=== PATIENT | male | born 1945 | race Caucasian/White ===

== ENCOUNTER 2018-12-02 00:54 | Emergency (ER) | payer MEDICARE ==
[2018-12-02 01:48] LABS: ALT (SGPT) 18 U/L (8-55); AST (SGOT) 22 U/L (5-34); Albumin 3.7 g/dL (3.4-4.8); Alkaline Phosphatase 44 U/L (40-150); Anion Gap 13 mmol/L (10-20); BUN (Urea Nitrogen) 13 mg/dL (8.4-25.7); Bilirubin, Total 1.1 mg/dL (0.2-1.2); Calc. Creatinine Clearance 0 mL/min (70-130); Carbon Dioxide 29 mmol/L (23-31); Chloride 99 mmol/L (98-107); Estimated GFR-MDRD 87; Globulin 2.9 g/dL (2.4-3.5); Glucose 133 mg/dL (83-110); Lipase 36 U/L (8-78); Potassium 3.9 mmol/L (3.5-5.1); Protein, Total 6.6 g/dL (5.8-8.1); Sodium 137 mmol/L (136-145)
[2018-12-02 02:13] LABS: Hemoglobin 16.2 g/dL (14.0-18.0); Mean Corpuscular HGB CONC 33.1 g/dL (32.0-36.0); Mean Corpuscular Hemoglobin 32.3 pg (27.0-31.0); Mean Corpuscular Volume 97.5 fL (78.0-98.0); Mean Platelet Volume 6.5 fL (7.4-10.4); Platelet Count 227 thou/uL (130-400); RBC Distribution Width 12.7 % (11.5-14.5); Red Blood Cell (RBC) Count 5.02 mill/uL (4.70-6.10); White Blood Cell (WBC) Count 7.2 thou/uL (4.8-10.8)
[2018-12-02 02:16] LABS: Band 1 % (5-11); Eosinophils 5 % (0-10); Lymphocytes 49 % (21-51); MDiff Complete? YES; Monocytes 9 % (0-10); Neutrophil 35 % (42-75)
[2018-12-02] MEDS ORDERED: Lidocaine Viscous Sol 2% 15 ml UD Cup ONE (02:43)
[2018-12-02] MEDS ORDERED: Mag-Al 1200 mg/1200 mg/30 ML UDCUP ONE (02:43)
--- NOTE | 2018-12-02 08:12 | CT ---
CT ABDOMEN AND PELVIS WITH CONTRAST: INDICATIONS: Diffuse abdominal pain. COMPARISON: No prior comparison. FINDINGS: There is scattered subpleural nodularity of the bilateral lung bases. Atelectasis and/or scarring is seen bilaterally. There is a small hiatal hernia. Diffuse vascular disease is present. There is m oderate distention of the gallbladder with cholelithiasis, localizing to the gallbladder neck. No fo lidya hepatic or splenic lesion. No pancreatic inflammation. No hydronephrosis of either kidney. Sma ll parenchymal hypodensity of the left kidney is too small to definitively characterize. No evidence of adrenal mass. There is no free air. The bowel is incompletely evaluated without the presence of enteric contrast. There is scattered colonic diverticulosis. There is subtle increased density of the posterior bladder bilaterally, indicative of excreted contrast. No evidence of ascites. There a re diffuse osseous degenerative changes. IMPRESSION: 1. Moderate distention of the gallbladder with cholelithiasis, localizing to the gallbladder neck. Recommend gallbladder ultrasound for further evaluation. 2. Small left renal hypodensity, too small to further characterize. 3. Diffuse atherosclerosis. 4. Colonic diverticulosis. POS: NWK
--- NOTE | 2018-12-02 08:42 | RAD ---
EXAM: Portable chest PROVIDED CLINICAL HISTORY: Abdominal pain COMPARISON: 04/16/2010 FINDINGS: Cardiac and mediastinal silhouette is within normal limits. No focal consolidation, pleural fluid or pneumothorax evident. IMPRESSION: No evidence for an acute cardiopulmonary process.
--- NOTE | 2018-12-02 13:09 | ULT ---
GALLBLADDER ULTRASOUND: INDICATIONS: Epigastric pain. COMPARISON: Reference is made to preceding CT exam, demonstrating cholelithiasis. FINDINGS: There is moderate distention of the gallbladder. The gallbladder wall is thickened. Shadowing west lithiasis is seen at the gallbladder neck with probable surrounding gallbladder sludge. The imaged c ommon duct measures 4 mm. No focal hepatic lesion or evidence of ascites. IMPRESSION: Distended gallbladder with gallbladder wall thickening and cholelithiasis. Recommend surgical consultation for further assessment. POS: KIERSTEN
[2018-12-02] MEDS ORDERED: ISOVUE-370 76%-LOCM 1 ML ONE (13:54)
== END 2018-12-02 07:37 | disposition home or self-care (01) ==
LOC: ERS 00:54
DX: K80.20 Calculus of gallbladder without cholecystitis without obstruction (principal); I10 Essential (primary) hypertension; J45.909 Unspecified asthma, uncomplicated; Z79.899 Other long term (current) drug therapy
CPT/HCPCS: 36415; 71045; 74177; 76705; 80053; 83690; 84484; 85025; 93005; Q9966

== ENCOUNTER 2018-12-04 10:06 | Outpatient (CLI) | payer MEDICARE ==
[2018-12-04 12:17] LABS: ALT (SGPT) 10 U/L (8-55); AST (SGOT) 16 U/L (5-34); Albumin 3.8 g/dL (3.4-4.8); Alkaline Phosphatase 47 U/L (40-150); Bilirubin, Direct 0.9 mg/dL (0.1-0.3); Protein, Total 6.9 g/dL (5.8-8.1)
== END 2018-12-04 10:07 | disposition home or self-care (01) ==
LOC: LABBT 10:06
PROVIDERS: ATTEND Surgery
DX: Z01.812 Encounter for preprocedural laboratory examination (principal); K81.9 Cholecystitis, unspecified
CPT/HCPCS: 80076

== ENCOUNTER 2018-12-07 07:47 | Day surgery (SDC) | payer MEDICARE ==
[2018-12-04 10:51] VITALS: BMI 30.6
[2018-12-07] MEDS ORDERED: Sodium Chloride 0.9% 100 ML ONE (08:52)
[2018-12-07] MEDS ORDERED: cefOXitin 2 GM VIAL ONE (08:52)
[2018-12-07] MEDS ORDERED: Bupivacaine/Epinephrine 0.25% 30 ML VIAL ONE (09:30)
[2018-12-07] MEDS ORDERED: Fentanyl 100 MCG/2 ML VIAL ONE ×3 (09:51→12:08)
[2018-12-07] MEDS ORDERED: Midazolam HCl 2 mg/2 ml Vial ONE (09:51)
[2018-12-07] MEDS ORDERED: Iothalamate Meglumine 60% 50 ML VIAL FS ONE (09:53)
--- NOTE | 2018-12-07 11:25 | RAD ---
INTRAOPERATIVE CHOLANGIOGRAM: Date: 12/07/18 HISTORY: Cholecystectomy. FINDINGS: Three images from an intraoperative cholangiogram provided. First image demonstrates contrast media w ithin the duodenum and proximal CBD. The two later images demonstrate contrast media within the entir ety of the CBD. No filling defects seen. IMPRESSION: No filling defects seen within the common bile duct. POS: ANGELA
[2018-12-07] MEDS ORDERED: Ketorolac Tromethamine 30 MG/ML VIAL ONE (11:57)
--- NOTE | 2018-12-07 18:51 | OP ---
DATE OF PROCEDURE: 12/07/2018 PREOPERATIVE DIAGNOSIS: Symptomatic cholelithiasis. PROCEDURES PERFORMED: Laparoscopic cholecystectomy with intraoperative cholangiogram. INDICATIONS FOR PROCEDURE: This is a 73-year-old male, who has been having some right upper quadrant pain, went to the ER. Ultrasound showed cholelithiasis. Since then, his LFTs have climbed. FINDINGS: Gangrenous gallbladder. Negative cholangiogram. DESCRIPTION OF PROCEDURE: After informed consent was obtained, the patient was taken to the operating room and given general endotracheal anesthesia, placed in the supine position. Abdomen was prepped and draped in usual fashion. Local anesthesia was infiltrated subcutaneously and deep. A subumbilical incision was performed. Subcu divided sharply. The fascia was grasped, and 2 stay sutures were placed in either side of midline. Midline incised, digital palpation revealed no local adhesions. A blunt 12 mm trocar was inserted. Pneumoperitoneum was created to a pressure of 15 mmHg. A 0-degree laparoscope was inserted. He had morbid obesity with quite a bit of intraabdominal visceral fat. I could not even see the gallbladder. Three ports were placed subcostal. The gallbladder was encased in omentum. I was able to tease some of this down and access the gallbladder. The gallbladder was aspirated, and 60 mL of thick dark bile removed. The gallbladder was grasped and advanced superiorly, and the adhesions were lysed using blunt and sharp dissection. The peritoneum was then dissected to expose the cystic duct and artery. A clip was placed at the base of the gallbladder. I had to add an additional trocar for the snake liver retractor to hold the adipose down to expose the ashleigh. An incision was made in the cystic duct, and an Arrow cholangiocatheter was inserted. Intraoperative cholangiogram was performed utilizing fluoroscopy. This showed free flow in the duodenum. No filling defects. The cystic duct was triply ligated and divided. The artery was triply ligated and divided. The gallbladder was removed from its fossa utilizing electrocautery; however, the posterior wall was necrotic. The gallbladder was placed in an endosac and removed from the abdomen in the endosac. Hemostasis was achieved utilizing electrocautery and Gianna powder. A 19-Serbian MANJIT drain was placed in the subhepatic space and brought out through the right lateral incision. Hemostasis was assured. Trocars and retractors were removed. The fascia was closed with interrupted 0 Vicryl suture. The skin was closed with interrupted 4-0 Rapide. Dermabond applied. The patient tolerated the procedure well, transferred to Recovery in good condition. Sponge and needle count verified correct x2. Job ID: [id number]
== END 2018-12-07 13:45 | disposition home or self-care (01) ==
LOC: SDC 07:47
PROVIDERS: ATTEND Surgery
PROC: 0FT44ZZ Resection of Gallbladder, Percutaneous Endoscopic Approach (ICD-10-PCS; principal; 2018-12-07)
PROC: BF131ZZ Fluoroscopy of Gallbladder and Bile Ducts using Low Osmolar Contrast (ICD-10-PCS; 2018-12-07)
DX: K80.00 Calculus of gallbladder with acute cholecystitis without obstruction (principal); K82.A1 Gangrene of gallbladder in cholecystitis; I10 Essential (primary) hypertension; E78.5 Hyperlipidemia, unspecified; Z79.51 Long term (current) use of inhaled steroids; Z79.82 Long term (current) use of aspirin; Z79.899 Other long term (current) drug therapy
CPT/HCPCS: 47532; 88304; J0131; J0694; J1610; J1885; J2250; J3010; J3490

== ENCOUNTER 2019-02-06 14:19 | Outpatient (CLI) | payer MEDICARE ==
--- NOTE | 2019-02-06 15:13 | ULT ---
LEFT LOWER EXTREMITY VENOUS DOPPLER: Date: 02/06/19 PROVIDED CLINICAL HISTORY: Leg pain. FINDINGS: Lopez scale and color Doppler sonography with spectral analysis performed of the left common femoral, femoral, popliteal, posterior tibial, greater saphenous, and profunda femoral veins, demonstrating a normal sonographic appearance to each. Limited interrogation of the soft tissues at the lateral aspec t of the proximal fibula in the region of palpable concern reveals a nonspecific, [id number] area of altered echogenicity that is incompletely characterized sonographically. IMPRESSION: No sonographic evidence for left lower extremity deep venous thrombosis. POS: OFF
== END 2019-02-06 14:20 | disposition home or self-care (01) ==
LOC: BICULT 14:19
PROVIDERS: ATTEND Family Medicine
DX: M79.605 Pain in left leg (principal)

== ENCOUNTER 2019-06-26 01:59 | Inpatient (IN) | payer MEDICARE ==
[2019-06-26 02:36] LABS: #Basophils 0.1 thou/uL (0.0-0.2); #Eosinphils 0.6 thou/uL (0.0-0.7); #Lymphocytes 2.2 thou/uL (1.20-3.40); #Monocytes 0.6 thou/uL (0.11-0.59); #Neutrophils 3.5 thou/uL (1.40-6.50); %Basophils 1.2 % (0.0-1.0); %Eosinophils 9.1 % (0.0-10.0); %Lymphocytes 31.3 % (21.0-51.0); %Neutrophils 50.4 % (42.0-75.0); Mean Corpuscular HGB CONC 34.2 g/dL (32.0-36.0); Mean Corpuscular Hemoglobin 32.5 pg (27.0-31.0); Mean Corpuscular Volume 95.1 fL (78.0-98.0); Platelet Count 253 thou/uL (130-400); RBC Distribution Width 11.9 % (11.5-14.5); Red Blood Cell (RBC) Count 4.62 mill/uL (4.70-6.10); White Blood Cell (WBC) Count 6.9 thou/uL (4.8-10.8)
[2019-06-26 02:58] LABS: ALT (SGPT) 19 U/L (8-55); AST (SGOT) 21 U/L (5-34); Albumin 3.7 g/dL (3.4-4.8); Alkaline Phosphatase 44 U/L (40-110); Anion Gap 12 mmol/L (10-20); BUN (Urea Nitrogen) 11 mg/dL (8.4-25.7); Bilirubin, Total 1.2 mg/dL (0.2-1.2); CK (CPK) 113 U/L (30-200); Calc. Creatinine Clearance 0 mL/min (70-130); Calcium 8.4 mg/dL (7.8-10.44); Carbon Dioxide 23 mmol/L (23-31); Chloride 105 mmol/L (98-107); Estimated GFR-MDRD Greater than 90; Globulin 2.7 g/dL (2.4-3.5); Glucose 178 mg/dL (83-110); Potassium 4.7 mmol/L (3.5-5.1); Protein, Total 6.4 g/dL (5.8-8.1); Sodium 135 mmol/L (136-145)
[2019-06-26] MEDS ORDERED: Morphine 4 MG/ML VIAL ONE (03:58)
[2019-06-26] MEDS ORDERED: Ondansetron PF 4 MG/2 ML Vial ONE (03:58)
[2019-06-26] MEDS ORDERED: PROVENTIL INHALER 6.7 G (200 INHALATIONS) INH PRN (05:20)
[2019-06-26] MEDS ORDERED: Albuterol Sulfate 2.5 mg/3 ml Neb NEB PRN (05:20)
[2019-06-26 05:23] LABS: Lactic Acid 1.9 mmol/L (0.5-2.2)
[2019-06-26] MEDS ORDERED: Nitroglycerin 0.4 MG TAB (25 Tab Bottle) PO PRN (05:53)
[2019-06-26] MEDS ORDERED: Calcium Carbonate 500 MG ChewTAB PO PRN (05:58)
[2019-06-26] MEDS ORDERED: Acetaminophen 325 MG TAB PO PRN (05:58)
[2019-06-26] MEDS ORDERED: Ondansetron ODT 4 MG TAB PO PRN (05:58)
[2019-06-26] MEDS ORDERED: Ondansetron PF 4 MG/2 ML Vial IVP PRN (05:58)
--- NOTE | 2019-06-26 06:14 | HP ---
PRIMARY CARE PHYSICIAN: Dr. Tania Hines. CHIEF COMPLAINT: Possible seizure. HISTORY OF PRESENT ILLNESS: The patient is a 74-year-old male with persistent sinus tachycardia, presented to the hospital by EMS with above complaints. Around 10:00 p.m., the patient had a fall with seizure. Please note that there is no family at the bedside. The patient is unable to recall the above event. History obtained from the ER report. When EMS arrived, the patient was alert, awake, oriented x0. He also had urinary incontinence. While in the ambulance, his mentation started to slowly improve. He was complaining of right shoulder, right knee and neck pain. Please note that patient fell on his right shoulder and the head. He denies any chest pain, palpitations, or similar episodes in the past. PAST MEDICAL HISTORY: 1. Persistent sinus tachycardia. 2. Hypertension. 3. Hyperlipidemia. 4. Sanchez esophagus. 5. Cholelithiasis. 6. Diverticulosis. 7. History of shingles. PAST SURGICAL HISTORY: 1. Colon polypectomy in 1997, repeat colonoscopy in 2004, 2008, 2013, and 2017. 2. EGD. 3. Laparoscopic cholecystectomy in 2019. ALLERGIES: NO KNOWN DRUG ALLERGIES. CURRENT HOME MEDICATIONS: The patient is able to name some of his medications that include: 1. Nexium 40 mg daily. 2. Enalapril 10 mg daily. 3. Nadolol 10 mg b.i.d. 4. Aspirin 81 mg daily. 5. Lipitor nightly. FAMILY HISTORY: Father had ND. Mother had COPD. SOCIAL HISTORY: The patient denies any smoking, alcohol, or drug use. His is the decision maker. 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 REVIEW OF SYSTEMS: All other review of systems were reviewed and were found negative. PHYSICAL EXAMINATION: VITAL SIGNS: Vital signs in the emergency room showed temperature 98.1, respirations of 16, pulse rate of 87, blood pressure of 145/89, and O2 saturation of 99% on room air. GENERAL: A 74-year-old male, in mild distress due to shoulder pain. HEENT: Head, atraumatic and normocephalic. Sclerae anicteric. Dry mucous membranes. Tongue biting noted. NECK: Supple. No JVD. No carotid bruit. LUNGS: Clear to auscultation bilaterally. No wheezing, rales, or rhonchi. HEART: S1 and S2 present. Regular rate and rhythm. No rubs or gallops. No significant murmurs appreciated. ABDOMEN: Soft, nontender. Bowel sounds present. No rebound or guarding. No costovertebral angle tenderness. EXTREMITIES: No edema or calf tenderness. NEUROLOGIC: Grossly nonfocal. Moves all 4 extremities. Power is 5/5 in all extremities. Sensation to touch was normal bilaterally. SKIN: Warm and dry. Abrasion over the right knee. LYMPH NODES: No palpable lymph nodes in the neck. PSYCHIATRY: Alert, awake, and oriented x3. LABORATORY FINDINGS: CBC showed WBC 6.9 with hemoglobin 15, hematocrit 43.9, platelet 253. Chemistry showed sodium 135, potassium 4.7, chloride 105, bicarb 23, BUN 11, creatinine 0.82. Lactic acid 2.5. Repeat lactic acid was 1.9. Troponin negative. IMAGING STUDIES: Chest x-ray by my review was negative for acute findings. CT scan of the brain by my review was negative. CT cervical spine was negative for fractures or dislocation. Right shoulder x-ray was consistent with right humeral fracture per ER. Official report is pending at this time. IMPRESSION: 1. Suspected seizure, rule out syncope. Please note that the patient was incontinent and had tongue biting. 2. Right humeral fracture secondary to fall. 3. Hyponatremia. 4. Lactic acidosis. 5. Hypertension. 6. Hyperlipidemia. 7. History of persistent sinus tachycardia. 8. Gastroesophageal reflux disease. 9. Diverticulosis. PLAN: The patient will be monitored in the stroke unit. Serial troponins are pending at this time. We will keep the patient n.p.o. We will get input from Cardiology, Neurology, and Orthopedic. Right shoulder will be immobilized. Pain control with IV morphine. Resume selected home medications once verified. Check orthostatic vitals. Seizure precautions. The patient understands the above plan of care. Job ID: [id number]
[2019-06-26] MEDS ORDERED: Acetaminophen 325 MG/10.15 ML UDCUP ONE (06:44)
[2019-06-26] MEDS ORDERED: Acetaminophen 325 MG TAB ONE (06:45)
--- NOTE | 2019-06-26 06:45 | CT ---
PRELIMINARY REPORT/[facility]/EMERGENCY AFTER HOURS PROCEDURE: EXAM: CT Head Without Intravenous Contrast. CLINICAL HISTORY: ER 8... Fall at 2200 on 06/25/2019 at home with . EMS was called an pt was A&O x0 on arrival, he h ad episode of urinary incontinence. TECHNIQUE: Axial computed tomography images of the head/brain without intravenous contrast. COMPARISON: None provided. FINDINGS: BRAIN: Mild cerebral atrophy. No intracranial hemorrhage. VENTRICLES: No hydrocephalus. ORBITS: The orbits are unremarkable. SINUSES AND MASTOIDS: Right maxillary sinus mucous retention cyst is present. SOFT TISSUES: No significant facial or scalp soft tissue swelling evident. No radiopaque foreign body is seen. BONES: No acute skull fracture. IMPRESSION: No acute intracranial abnormality. ELECTRONICALLY SIGNED BY: Loretta Rogers MD Jun 26, 2019 2:50:34 AM GLASS OR MIRROR INSPECTOR This report is intended for review by the ordering physician only, in accordance of law. If you recei ve this report in error, please call [facility] at [phone]. FINAL REPORT EMERGENCY AFTER HOURS CT BRAIN WITHOUT CONTRAST: FINDINGS/IMPRESSION: I agree with the findings and impression given in the preliminary report per [facility] physici an. No evidence of acute intracranial abnormality.
--- NOTE | 2019-06-26 06:47 | CT ---
PRELIMINARY REPORT/[facility]/EMERGENCY AFTER HOURS PROCEDURE: EXAM: CT Cervical Spine Without Intravenous Contrast. CLINICAL HISTORY: ER 8... Fall at 2200 on 06/25/2019 at home with . EMS was called an pt was A&O x0 on arrival, he h ad episode of urinary incontinence. TECHNIQUE: Axial computed tomography images of the cervical spine without intravenous contrast. Sagittal and cor onal reformations performed. COMPARISON: None provided. FINDINGS: BONES: No acute fracture or focal osseous lesion. Bony alignment is anatomic. DISCS / DEGENERATIVE CHANGES: Osteophyte formation and facet hypertrophy is present. SOFT TISSUES: No prevertebral soft tissue swelling. No apical pneumothorax. IMPRESSION: No acute cervical spine abnormality. ELECTRONICALLY SIGNED BY: Loretta Rogers MD Jun 26, 2019 2:51:54 AM CUSTOMER CARE ASSISTANT This report is intended for review by the ordering physician only, in accordance of law. If you recei ve this report in error, please call [facility] at [phone]. FINAL REPORT EMERGENCY AFTER HOURS CT CERVICAL SPINE WITHOUT CONTRAST: FINDINGS/IMPRESSION: I agree with the findings and impression given in the preliminary report per [facility] physici an. Degenerative changes of cervical spine without acute osseous abnormality.
[2019-06-26 07:23] LABS: Troponin I 0.014 ng/mL (< 0.028)
--- NOTE | 2019-06-26 07:38 | RAD ---
XR Chest 1 View Portable History: Fall. Seizure Comparison: Radiograph November 2018 Findings: Incompletely evaluated right humeral head/neck fracture. No displaced right rib fracture. N o pneumothorax. No effusion. No acute osseous abnormality. Impression: 1. No acute intrathoracic abnormality. 2. Comminuted right humeral head/neck fracture.
--- NOTE | 2019-06-26 07:39 | RAD ---
XR Knee Rt 4 View STANDARD History: Fall. Pain Comparison: None. Findings: Trace joint effusion. No acute fracture or malalignment. Low-grade medial compartment joint space narrowing. Mild vascular calcifications. Impression: Low-grade medial compartment degenerative disease. No acute osseous abnormality.
--- NOTE | 2019-06-26 07:42 | RAD ---
Exam:Right shoulder 3 view HISTORY: Fall. Pain. COMPARISON: None FINDINGS: Right humeral head fracture. Fracture fragment is identified. There is a irregularity along the medial right humeral head. Fracture the bony glenoid is also suspected. These lies ribs and clavicle are unremarkable. IMPRESSION: Posttraumatic change. Results study discussed with Dr. Ogden 06/26/2019 at 7:39 AM Code CR
--- NOTE | 2019-06-26 07:52 | CT ---
CT Upper Ext Rt WO Con History: Fracture Comparison: Shoulder radiograph same day Findings: Intra-articular comminuted humeral head/neck fracture with fracture extending through the l seth and greater tuberosities. There is a displaced fragment within the axillary pouch from the lesser tuberosity. There is impaction of the articular surface approximately 4 mm. There are small fr acture fragments are seen at the glenohumeral articulation. The shoulders displaced posteriorly but the articular surface posterior to the glenoid and impacted u partha the posterior glenoid. The articular surface involvement is greater than 50%. The glenoid itself is without fracture. The common clavicular alignment is normal. Coracoid is withou t fracture. The ribs are without fracture. The fracture extends distally from the humeral head superior articular surface 7.5 cm. The scapula itself is intact. There is hematoma within the right glenohumeral joint. There is edema within the teres minor from a o sseous avulsion. Impression: Posteriorly displaced comminuted NEER four-part fracture right humeral head/neck.. The ar ticular surface is severely impacted and is from the remainder of the humerus. There is a large trough of the humeral head which is currently engaged upon the posterior glenoid.
[2019-06-26] MEDS: Sodium Chloride 0.9% 1,000 ML IV SCH ×2 (08:00→18:25)
--- NOTE | 2019-06-26 08:27 | CON ---
DATE OF CONSULTATION: CHIEF COMPLAINT: Right humerus pain. HISTORY OF PRESENT ILLNESS: Mr. Hutton is a 74-year-old male, who presented to the emergency department last night. He is somewhat confused about the events and does not remember clearly what happened. Per EMS report, the patient had a seizure and fell. He landed on his right side, striking his head and his right shoulder. He fractured his proximal humerus. Orthopedics was consulted regarding this injury. The patient is being admitted to the hospital for further workup and care. He is currently resting comfortably, lying supine. He is right-hand dominant. He reports previously being very active. He had a trip planned to [place] in 2 weeks. PAST MEDICAL HISTORY: Includes sinus tachycardia, hypertension, hyperlipidemia, Sanchez's esophagus, cholelithiasis, diverticulitis, and shingles. PAST SURGICAL HISTORY: Cholecystectomy, multiple colonoscopies and EGD procedures. ALLERGIES: NO KNOWN DRUG ALLERGIES. FAMILY MEDICAL HISTORY: Noncontributory. REVIEW OF SYSTEMS: Positive for right shoulder pain. Otherwise, negative 10-point review of systems currently. PHYSICAL EXAMINATION: VITAL SIGNS: The patient is afebrile, respiratory rate of 16, pulse is 88, blood pressure is 145/88, and oxygen saturation is 99% on room air. GENERAL: The patient is sitting with head of bed elevated. He is able to answer questions appropriately. He does not clearly remember his fall, however. He has ecchymosis over the forehead in the right side of his face. RESPIRATORY: Breathing comfortably. ABDOMEN: Soft, nontender, and nondistended. CARDIOVASCULAR: Pulses palpable and regular peripherally. MUSCULOSKELETAL: The patient is neurovascularly intact in the upper extremities. He is able to flex and extend the digits. He has 2-second capillary refill. He has a palpable pulse. The right shoulder has swelling and pain with motion. Left upper extremity and lower extremities are atraumatic. IMAGING DATA: X-rays of the right shoulder as well as CT scan of the shoulder are reviewed. These demonstrate a proximal humerus fracture with dislocation of the shoulder. The humeral head is pointing posterior and his hinged on the glenoid. There is a large reverse Hill-Sachs lesion. There is significant erosion of the bone. There is displacement of the fracture fragments. IMPRESSION: Likely seizure with posterior dislocation of shoulder and fracture. PLAN: The patient is going to be admitted to the hospital. He will need careful monitoring and workup for his new-onset seizure. Regarding his shoulder, he will need surgical intervention for this. I will plan to take him to the operating room tomorrow for an attempt at closed reduction, but more likely an open reduction and fixation procedure of the right proximal humerus. He is at risk for complications such as recurrent dislocation, AVN, and others. He is aware of this risk. He is aware that he would possibly need a reverse shoulder arthroplasty in the future. He wants to proceed with this. He should be n.p.o. at midnight [facility]. Job ID: [id number]
[2019-06-26] MEDS ORDERED: Nadolol 40 MG TAB PO SCH (09:00)
[2019-06-26] MEDS ORDERED: Lisinopril 10 MG TAB PO SCH (09:00)
[2019-06-26] MEDS ORDERED: Aspirin 81 mg Enteric Coated Tablet PO SCH (09:00)
[2019-06-26] MEDS ORDERED: Morphine 2 MG/ML SYRINGE ONE (09:32)
[2019-06-26] MEDS: Morphine 2 MG/ML SYRINGE SLOW IVP PRN ×4 (09:38→22:52)
[2019-06-26 10:21] LABS: Troponin I 0.017 ng/mL (< 0.028)
--- NOTE | 2019-06-26 11:31 | ULT ---
BILATERAL CAROTID DUPLEX ULTRASOUND: Date: 06/26/2019 HISTORY: Syncope. FINDINGS: Real-time color Doppler evaluation of the right and left carotid systems shows minimal plaque formati on. On the right side, peak systolic velocities of the common carotid were 89 cm/second. Internal carotid velocities were 99 cm/second and external carotid velocities were 101 cm/second. On the left side, peak systolic velocities of the common carotid were 102 cm/second. Internal carotid velocities were 88 cm/second and external carotid velocities were 114 cm/second. Vertebral flow was antegrade bilaterally. IMPRESSION: No evidence of hemodynamically significant stenosis of either internal carotid artery. POS: [facility]
--- NOTE | 2019-06-26 12:17 | CON ---
DATE OF CONSULTATION: HISTORY OF PRESENT ILLNESS: The patient is a 74-year-old gentleman with a history of inappropriate sinus tachycardia, who presented after losing consciousness and having seizure-like activity. The patient has a previous history of hypertension and IST. The patient has been treated with beta-tyrese therapy and a calcium tyrese. The patient was in his usual state of health when he started having difficulty and he became confused. He became clenched and had seizure-like activity. The patient apparently developed urinary incontinence. The patient denied having any chest discomfort. PAST MEDICAL HISTORY: 1. Inappropriate sinus tachycardia. 2. Asthma. 3. Sanchez esophagitis. 4. Cholelithiasis. 5. Hypertension. 6. Diverticulosis. 7. Dyslipidemia. PAST SURGICAL HISTORY: 1. Tonsillectomy. 2. Cholecystectomy. SOCIAL HISTORY: Nonsmoker. FAMILY HISTORY: No strong family history of coronary artery disease. MEDICATIONS ON ADMISSION: 1. Protonix 40 daily. 2. Lipitor 40 nightly. 3. Aspirin 81 daily. 4. Nadolol 10 b.i.d. 5. Hydrochlorothiazide 12.5 daily. REVIEW OF SYSTEMS: Ten-point system otherwise unremarkable. PHYSICAL EXAMINATION: GENERAL: This is a well-developed gentleman, in no acute distress. VITAL SIGNS: Blood pressure 130/70. NECK: No jugular venous distention. LUNGS: Clear to auscultation. HEART: Regular rate and rhythm. Normal S1 and S2. No murmurs. ABDOMEN: Nondistended. EXTREMITIES: No edema. VASCULAR: Radial pulses 2+. LABORATORY RESULTS: White blood cell count 6.9, hemoglobin 15.0, hematocrit 43.9, and platelets are 253. Sodium is 135, potassium 4.7, chloride 105, bicarbonate 23, BUN 11, creatinine 0.82, and glucose 170. Troponin 0.014. EKG normal sinus rhythm with poor R-wave progression, cannot rule out an inferior wall myocardial infarction. IMPRESSION: 1. Possible seizure. 2. Inappropriate sinus tachycardia. 3. Hypertension. 4. Dyslipidemia. 5. Asthma. This gentleman had a possible seizure. He is undergoing a neurology evaluation. He also has a shoulder separation. From a cardiac standpoint, we would restart him on nadolol. We will follow this patient with you through this hospitalization. Job ID: [id number] [facility]
--- NOTE | 2019-06-26 13:40 | PDOC.HOSPP ---
- Subjective Encounter Date: 06/26/19 Encounter Time: 11:45 Subjective: Patient seen and examined. No new complaints. No overnight events - Objective Result Diagrams: 06/26/19 02:29 06/26/19 02:29 Radiology Reviewed by me: Yes EKG Reviewed by me: Yes Hospitalist ROS - Review of Systems Respiratory: denies: cough, dry, shortness of breath, hemoptysis, SOB with excertion, pleuritic pain, sputum, wheezing, other Cardiovascular: denies: chest pain, palpitations, orthopnea, paroxysmal noc. dyspnea, edema, light headedness, other Gastrointestinal: denies: nausea, vomiting, abdominal pain, diarrhea, constipation, melena, hematochezia, other Genitourinary: denies: dysuria, frequency, incontinence, hematuria, retention, other Musculoskeletal: denies: neck pain, shoulder pain, arm pain, back pain, hand pain, leg pain, foot pain, other - Medication Medications: Active Medications Generic Name Dose Route Start Last Admin Trade Name Freq PRN Reason Stop Dose Admin Sodium Chloride 1,000 mls @ 100 mls/hr 06/26/19 06:00 06/26/19 08:00 Normal Saline 0.9% IV 06/28/19 06:01 1,000 mls .Q10H LUDIN Administration Morphine Sulfate 2 mg 06/26/19 05:55 06/26/19 09:38 Morphine SLOW IVP 06/28/19 05:56 2 mg Q4H PRN Administration Pain - Exam General Appearance: NAD, awake alert Eye: PERRL, anicteric sclera ENT: normocephalic atraumatic, no oropharyngeal lesions Neck: supple, symmetric, no JVD, no thyromegaly Heart: RRR, no murmur, no gallops, no rubs Respiratory: CTAB, no wheezes, no rales, no ronchi Gastrointestinal: soft, non-tender, non-distended, normal bowel sounds Extremities: no cyanosis, no clubbing, no edema Skin: normal turgor, no lesions Neurological: no focal deficits Musculoskeletal: normal tone, normal strength Psychiatric: normal affect, normal behavior Hosp A/P (1) Syncope Code(s): R55 - SYNCOPE AND COLLAPSE Status: Acute (2) Seizure Code(s): R56.9 - UNSPECIFIED CONVULSIONS Status: Acute (3) Humeral fracture Code(s): S42.309A - UNSP FRACTURE OF SHAFT OF HUMERUS, UNSP ARM, INIT Status: Acute (4) Hypertension Code(s): I10 - ESSENTIAL (PRIMARY) HYPERTENSION Status: Chronic (5) Dyslipidemia Code(s): E78.5 - HYPERLIPIDEMIA, UNSPECIFIED Status: Chronic (6) GERD (gastroesophageal reflux disease) Code(s): K21.9 - GASTRO-ESOPHAGEAL REFLUX DISEASE WITHOUT ESOPHAGITIS Status: Chronic (7) Asthma Code(s): J45.909 - UNSPECIFIED ASTHMA, UNCOMPLICATED Status: Chronic - Plan old records reviewed/req, plan discussed w/ family cardiology consulted echo pending neurology consulted medication reviewed and continue to provide symptomatic care ortho to do surgery tomorrow home medication reconciled
[2019-06-26] MEDS: Nadolol 40 MG TAB PO SCH ×2 (14:13→22:51)
[2019-06-26 14:54] VITALS: BMI 29.1
[2019-06-26] MEDS ORDERED: CEFAZOLIN 2 GM in Premix Bag 1 BAG IVPB SCH (15:15)
[2019-06-26] MEDS ORDERED: Atorvastatin Calcium 10 MG TAB PO SCH (21:00)
[2019-06-26] MEDS: Atorvastatin Calcium 40 MG TAB PO SCH (22:51)
[2019-06-26] MEDS: Lisinopril 10 MG TAB PO SCH (22:51)
[2019-06-26] MEDS: Famotidine/PF 20 mg/2ml Vial SLOW IVP SCH (22:52)
[2019-06-27] MEDS: Morphine 2 MG/ML SYRINGE SLOW IVP PRN ×2 (03:24→08:02)
[2019-06-27 05:10] LABS: #Basophils 0.1 thou/uL (0.0-0.2); #Eosinphils 0.3 thou/uL (0.0-0.7); #Lymphocytes 1.9 thou/uL (1.20-3.40); #Monocytes 0.9 thou/uL (0.11-0.59); %Basophils 0.7 % (0.0-1.0); %Eosinophils 3.8 % (0.0-10.0); %Lymphocytes 23.2 % (21.0-51.0); %Monocytes 11.4 % (0.0-10.0); %Neutrophils 60.8 % (42.0-75.0); Hemoglobin 13.6 g/dL (14.0-18.0); Mean Corpuscular HGB CONC 34.2 g/dL (32.0-36.0); Mean Corpuscular Hemoglobin 32.7 pg (27.0-31.0); Mean Corpuscular Volume 95.6 fL (78.0-98.0); Mean Platelet Volume 7.4 fL (7.4-10.4); Platelet Count 200 thou/uL (130-400); RBC Distribution Width 11.9 % (11.5-14.5); Red Blood Cell (RBC) Count 4.15 mill/uL (4.70-6.10); White Blood Cell (WBC) Count 8.2 thou/uL (4.8-10.8)
[2019-06-27 05:27] LABS: ALT (SGPT) 16 U/L (8-55); AST (SGOT) 31 U/L (5-34); Albumin 3.3 g/dL (3.4-4.8); Alkaline Phosphatase 42 U/L (40-110); Anion Gap 11 mmol/L (10-20); BUN (Urea Nitrogen) 10 mg/dL (8.4-25.7); Bilirubin, Total 2.3 mg/dL (0.2-1.2); Calc. Creatinine Clearance 124 mL/min (70-130); Calcium 7.8 mg/dL (7.8-10.44); Carbon Dioxide 22 mmol/L (23-31); Chloride 105 mmol/L (98-107); Estimated GFR-MDRD Greater than 90; Globulin 2.4 g/dL (2.4-3.5); Glucose 123 mg/dL (83-110); Magnesium 1.8 mg/dL (1.6-2.6); Potassium 3.8 mmol/L (3.5-5.1); Protein, Total 5.7 g/dL (5.8-8.1); Sodium 134 mmol/L (136-145)
--- NOTE | 2019-06-27 09:21 | MRI ---
EXAM: MRI of the brain without and with contrast HISTORY: Seizure and fall COMPARISON: None TECHNIQUE: Multiplanar multisequence MR images were obtained of the brain without and with IV contras t. FINDINGS: There is scattered foci of high T2/FLAIR signal in the subcortical and periventricular white matter, likely secondary to small vessel ischemic disease. No restricted diffusion. No abnormal enhancement. No hydronephrosis. No extra-axial fluid collection or intracranial hemorrhage. Thin cuts through the temporal lobes shows a symmetric appearance of the hippocampi. The expected flow voids are present. Corpus callosum, pituitary, and craniocervical junction are within normal limits. The calvarium and overlying soft tissues are unremarkable. The paranasal sinuses and mastoid air cells are well aerated. IMPRESSION: No evidence of acute intracranial abnormality.
[2019-06-27] MEDS: Sodium Chloride 0.9% 1,000 ML IV SCH ×2 (09:28→17:24)
[2019-06-27] MEDS: Famotidine/PF 20 mg/2ml Vial SLOW IVP SCH ×2 (09:29→21:33)
[2019-06-27] MEDS: Lisinopril 10 MG TAB PO SCH ×2 (09:29→21:32)
[2019-06-27] MEDS: Nadolol 40 MG TAB PO SCH ×2 (09:29→21:40)
[2019-06-27] MEDS ORDERED: Glycopyrrolate 0.2 MG/ML 5 ML SYRINGE ONE (10:34)
[2019-06-27] MEDS ORDERED: Succinylcholine Chloride 20 MG/ML 10 ml SYRINGE FS ONE (10:34)
[2019-06-27] MEDS ORDERED: Ondansetron PF 4 MG/2 ML Vial ONE (10:34)
[2019-06-27] MEDS ORDERED: PROPOFOL 200 MG/20 ML VIAL ONE (10:34)
[2019-06-27] MEDS ORDERED: Ropivacaine 0.5% HCl/PF (150 MG/30 ML VIAL) ONE (10:34)
[2019-06-27] MEDS ORDERED: PHENYLEPHRINE-NS 100 MCG/ML 10 ML SYRINGE ONE (10:34)
[2019-06-27] MEDS ORDERED: EPHEDRINE 25 MG/5 ML SYRINGE ONE (10:34)
[2019-06-27] MEDS ORDERED: Ropivacaine 0.2% HCl/PF (40 MG/20 ML VIAL) ONE (10:34)
[2019-06-27] MEDS ORDERED: Lidocaine 1% PF 5 ML VIAL ONE (10:34)
[2019-06-27] MEDS ORDERED: Fentanyl 100 MCG/2 ML VIAL ONE ×2 (11:48→14:14)
[2019-06-27] MEDS ORDERED: PACU-Morphine 4MG/ML VIAL SLOW IVP PRN (14:12)
[2019-06-27] MEDS ORDERED: Promethazine HCl 25 MG/ML VIAL SLOW IVP PRN (14:12)
[2019-06-27] MEDS ORDERED: Promethazine HCl 25 MG/ML VIAL IM PRN ×2 (14:12→15:04)
[2019-06-27] MEDS ORDERED: Ondansetron HCl/PF 4 MG/2 ML Vial IVP PRN (14:12)
--- NOTE | 2019-06-27 14:24 | PDOC.HOSPP ---
- Subjective Encounter Date: 06/27/19 Encounter Time: 07:15 Subjective: Patient seen and examined. No new complaints. No overnight events - Objective Vital Signs & Weight: Vital Signs (12 hours) Temp Pulse Resp BP BP Pulse Ox 06/27/19 09:29 143/74 H 06/27/19 07:38 98.2 F 73 14 142/79 H 96 06/27/19 03:33 98.2 F 71 16 136/80 94 L Weight Weight 215 lb I&O: 06/26/19 06/27/19 06/28/19 06:59 06:59 06:59 Intake Total 1963 1 Output Total 590 Balance 1373 1 Result Diagrams: 06/27/19 04:32 06/27/19 04:32 Radiology Reviewed by me: Yes EKG Reviewed by me: Yes Hospitalist ROS - Review of Systems ENT: denies: ear pain, ear discharge, nose pain, nose discharge, nose congestion , mouth pain, mouth swelling, throat pain, throat swelling, other Respiratory: denies: cough, dry, shortness of breath, hemoptysis, SOB with excertion, pleuritic pain, sputum, wheezing, other Cardiovascular: denies: chest pain, palpitations, orthopnea, paroxysmal noc. dyspnea, edema, light headedness, other Gastrointestinal: denies: nausea, vomiting, abdominal pain, diarrhea, constipation, melena, hematochezia, other Genitourinary: denies: dysuria, frequency, incontinence, hematuria, retention, other Musculoskeletal: denies: neck pain, shoulder pain, arm pain, back pain, hand pain, leg pain, foot pain, other - Medication Medications: Active Medications Generic Name Dose Route Start Last Admin Trade Name Freq PRN Reason Stop Dose Admin Atorvastatin Calcium 40 mg 06/26/19 21:00 06/26/19 22:51 Lipitor PO 40 mg HS LUDIN Administration Famotidine 20 mg 06/26/19 21:00 06/27/19 09:29 Pepcid SLOW IVP Not Given BID LUDIN Sodium Chloride 1,000 mls @ 100 mls/hr 06/26/19 06:00 06/27/19 09:28 Normal Saline 0.9% IV 06/28/19 06:01 1,000 mls .Q10H LUDIN Administration Lisinopril 10 mg 06/26/19 21:00 06/27/19 09:29 Zestril PO 10 mg BID LUDIN Administration Morphine Sulfate 2 mg 06/26/19 05:55 06/27/19 08:02 Morphine SLOW IVP 06/28/19 05:56 2 mg Q4H PRN Administration Pain Nadolol 10 mg 06/26/19 10:42 06/27/19 09:29 Corgard PO 10 mg BID LUDIN Administration - Exam General Appearance: NAD, awake alert Eye: PERRL, anicteric sclera ENT: normocephalic atraumatic, no oropharyngeal lesions Neck: supple, symmetric, no JVD, no thyromegaly Heart: RRR, no murmur, no gallops, no rubs Respiratory: CTAB, no wheezes, no rales, no ronchi Gastrointestinal: soft, non-tender, non-distended, normal bowel sounds Extremities: no cyanosis, no clubbing, no edema Skin: normal turgor, no lesions Neurological: no focal deficits Musculoskeletal: normal tone, normal strength Psychiatric: normal affect, normal behavior Hosp A/P (1) Syncope Code(s): R55 - SYNCOPE AND COLLAPSE Status: Acute (2) Seizure Code(s): R56.9 - UNSPECIFIED CONVULSIONS Status: Acute (3) Humeral fracture Code(s): S42.309A - UNSP FRACTURE OF SHAFT OF HUMERUS, UNSP ARM, INIT Status: Acute (4) Hypertension Code(s): I10 - ESSENTIAL (PRIMARY) HYPERTENSION Status: Chronic (5) Dyslipidemia Code(s): E78.5 - HYPERLIPIDEMIA, UNSPECIFIED Status: Chronic (6) GERD (gastroesophageal reflux disease) Code(s): K21.9 - GASTRO-ESOPHAGEAL REFLUX DISEASE WITHOUT ESOPHAGITIS Status: Chronic (7) Asthma Code(s): J45.909 - UNSPECIFIED ASTHMA, UNCOMPLICATED Status: Chronic - Plan old records reviewed/req cardiology consulted echo pending neurology consulted medication reviewed and continue to provide symptomatic care ortho to do surgery tomorrow home medication reconciled 06/27/19 continue current plan, today surgery cardiac and neuro work up negative so far
--- NOTE | 2019-06-27 14:31 | DIS ---
DATE OF ADMISSION: 06/26/2019 DATE OF DISCHARGE: 06/27/2019 PRIMARY CARE PHYSICIAN: Tania Hines MD. DISCHARGE DISPOSITION: Home. PRIMARY DISCHARGE DIAGNOSES: 1. Syncope/seizure/convulsive syncope. 2. Humeral fracture, status post open reduction and internal fixation. SECONDARY DISCHARGE DIAGNOSES: 1. Hypertension. 2. Gastroesophageal reflux disease. 3. Dyslipidemia. 4. Asthma. PRIMARY PROCEDURE/OPERATION: ORIF for humeral fracture. RADIOLOGICAL INVESTIGATION: CT brain negative for any acute intracranial process. Knee x-ray negative for any fracture or dislocation. Cervical spine CT scan negative for any fracture or dislocation. Chest x-ray negative for any acute cardiopulmonary process. Shoulder x-ray showed fracture of the bony glenoid, right humeral head fracture. Upper extremity CT scan showed posteriorly displaced commuted right humeral head and neck fracture. Echocardiography showed normal EF and diastolic dysfunction. Carotid Doppler negative for any stenosis. MRI brain was normal. SIGNIFICANT LABORATORY DATA: WBC 8.2, hemoglobin 13.6, and platelet 200. Sodium 134, potassium 3.8, BUN 10, creatinine 0.71, and calcium 7.8. LFT normal. Cardiac enzyme negative. B12, folate, and TSH normal. DISCHARGE MEDICATIONS: The patient will continue all his previous medication including; 1. Aspirin 81 mg daily. 2. Lipitor 40 mg p.o. at bedtime. 3. Enalapril 10 mg b.i.d. 4. Nadolol 10 mg b.i.d. 5. The patient will also continue his inhaler, ProAir HFA q.4 hourly p.r.n. and Advair inhalation b.i.d. CONTRAINDICATION: None. CODE STATUS: Full code. INPATIENT FOREST PRODUCTS TEACHER: Dr. Fox was consulted for humeral head fracture. Dr. Quiñonez was consulted for syncope/seizure. Dr. Scout Davenport is consulted for syncope/seizure. TEST RESULT PENDING ON DISCHARGE: None. ALLERGIES: NO KNOWN DRUG ALLERGIES. DISCHARGE PLAN: Posthospital, the patient will follow up with primary care physician, orthopedic physician, and Neurology. HOSPITAL COURSE: A 74-year-old male with above-mentioned medical problem, who was admitted by Dr. Raul Patel. Please see his H and P for further details. The patient was having initially symptoms of lightheadedness and dizziness and subsequently, the patient had episode of fall and he started having seizing activity. He was brought to emergency room. He was found with right humeral head fracture. Rest of the radiological workup came back negative, including CT brain, knee x-ray, cervical spine CT came back negative. The patient was suspected for either real syncope versus seizure. The patient was observed on telemetry floor. The patient did not have any further episodes while in hospital. His telemetry remained unremarkable. Stroke workup including carotid Doppler and MRI brain came back negative. Echocardiography showed diastolic dysfunction. The patient did not have any neurological dysfunction. The patient is taken for ORIF for right humeral fracture. Overall, the patient is doing much better. If Neurology, Cardiology, and Orthopedic okay, then we will consider discharging him later on today. PHYSICAL EXAMINATION: The patient is seen and examined at bedside today. VITAL SIGNS: Currently, temperature 98.2, pulse 73, blood pressure 143/74, respiratory rate 14, and saturation 96%. Weight 215 pounds. GENERAL: The patient is currently alert, awake, in no acute distress. HEENT: Head; normocephalic, atraumatic. NECK: Supple. No JVD. No meningeal signs of irritation. LUNGS: Clear to auscultation without any rhonchi or rales. CARDIAC: S1 and S2 regular. No murmur. No gallop. No rub. ABDOMEN: Soft. Bowel sounds present. Nontender, nondistended. No organomegaly. No mass. EXTREMITIES: No edema. NEUROLOGIC: Nonfocal examination. Job ID: [id number]
[2019-06-27] MEDS ORDERED: Magnevist 469MG/ML 20 ML VIAL ONE (14:32)
--- NOTE | 2019-06-27 14:34 | OP ---
DATE OF PROCEDURE: 06/27/2019 PROCEDURE PERFORMED: Open reduction and reconstruction of right proximal humerus fracture dislocation. PREOPERATIVE DIAGNOSIS: Right proximal humerus fracture dislocation secondary to seizure. POSTOPERATIVE DIAGNOSIS: Right proximal humerus fracture dislocation secondary to seizure. COMPLICATIONS: None. ESTIMATED BLOOD LOSS: 200 mL. TEXTILE MACHINE MECHANIC: Kavon Dawson PA-C IMPLANTS: Ethibond suture. INDICATIONS: Mr. Hutton is a 74-year-old male, who had a seizure. He had a posterior shoulder dislocation with highly comminuted fracture including reverse Bankart lesion. He was indicated for closed versus open reduction of the shoulder to relieve pain and hopefully assist in return of function. He is aware of risks, which to include infection, wound complication, nerve or vascular injury, post-traumatic arthritis, avascular necrosis, recurrent instability, and others. DESCRIPTION OF PROCEDURE: Mr. Hutton was identified in the preoperative holding area. His correct extremity was marked. He was carried to the operating room. He was positioned supine. General anesthesia was induced. A multidisciplinary time-out was performed. The right upper extremity was prepped and draped in sterile fashion. We began the procedure by evaluating the shoulder under intraoperative x-ray. We pulled traction on the arm rotation and attempted multiple reduction maneuvers. These were unsuccessful. The humeral head remained impinged on the glenoid. At this point, we opened the shoulder. We performed a deltopectoral approach to the proximal humerus. We dissected down through the subcutaneous tissues to the deltopectoral interval, which was opened. We protected the cephalic vein. We worked more deeply down to the clavipectoral fascia, which was opened. We then placed our deep retractors. At this point, we encounter a highly comminuted and displaced proximal humerus fracture. The articular surface was dislocated posteriorly. We elevated the lesser tuberosity and greater tuberosity and placed stay sutures in these. We then were able to visualize the head fragment. We used a bone hook and Hohmann device to pull the humeral head back into the glenoid cavity. He had a large Hill-Sachs defect and was highly comminuted. This was a fairly thin fragment that was not amenable to screw fixation. At this point, we reduced the fracture fragments back into their anatomic position. We decided at this point to use a suture repair technique rather than instrumentation given the very poor quality of bone that was left. We have passed multiple Ethibond sutures in the lesser tuberosity and greater tuberosity as well as the rotator cuff. We made drill holes in the humeral shaft. We passed these Ethibond sutures through the shaft. We brought our tendon and tuberosity fragments back together in their footprint. We tied these down with Ethibond suture in multiple areas. We took x-ray images confirming that we had an adequately reduced shoulder and it was located appropriately. We thoroughly irrigated with copious lavage. We then closed the remaining layers of the shoulder including the deltopectoral interval. At this point, the patient was placed in a sterile dressing and a sling. He was taken to the recovery room in good condition. Job ID: [id number]
--- NOTE | 2019-06-27 14:44 | RAD ---
RIGHT SHOULDER 3 VIEWS: HISTORY: Open reduction internal fixation of humeral fracture. FINDINGS: These are 2 C-arm images which show a humeral head and neck fracture which on these views appears to represent a fairly comminuted fracture. IMPRESSION: C-arm view showing a fracture of the humeral head and neck region. POS: OFF
[2019-06-27] MEDS ORDERED: Zolpidem Tartrate 5 MG TAB PO PRN (15:04)
[2019-06-27] MEDS ORDERED: HYDROcodone/Acetaminophen 10/325 mg Tablet PO PRN ×2 (15:04)
[2019-06-27] MEDS ORDERED: traMADol HCl 50 MG TAB PO PRN ×2 (15:04)
[2019-06-27] MEDS ORDERED: Ropivacaine 0.2% 550 ML 550 ML NERVE BLCK SCH (15:04)
[2019-06-27] MEDS ORDERED: Ondansetron PF 4 MG/2 ML Vial IVP PRN (15:04)
[2019-06-27] MEDS ORDERED: Fentanyl 100 MCG/2 ML VIAL IV PRN (15:05)
[2019-06-27] MEDS ORDERED: levETIRAcetam 500 MG TAB PO SCH (17:15)
--- NOTE | 2019-06-27 18:42 | CON ---
DATE OF CONSULTATION: 06/27/2019 CONSULTING PHYSICIAN: Hospitalist Service. IMPRESSION: New onset seizures, which appeared to be focal in origin. No abnormalities on MRI of the brain. PLAN: 1. Keppra 1500 mg loading dose followed by 500 mg twice a day. 2. Office followup. HISTORY OF PRESENT ILLNESS: Mr. Hutton is a 74-year-old gentleman with past history of hypertension and tachycardia syndrome. He is followed by Dr. Quiñonez. His reports that early in the evening he started acting a bit oddly. He was complaining of a bitter taste in his mouth and seem to have some incoherent speech. She did not think a whole lot of it at the time, but continued to monitor and they headed into bed and he called out to her before sitting up, shortly after this he fell forward and landed on his shoulder. She helped him up and put him back to bed. A few minutes later, he was witnessed to have a generalized tonic-clonic seizure. He was taken in by EMS. He does not recall any of these events until sometime after his hospitalization. He had an MRI of the brain done, which was unremarkable. His lab work was in normal range. EKG showed normal sinus rhythm. Dr. Quiñonez evaluated him and did not feel there was any cardiac issues present. PAST MEDICAL HISTORY: Tachycardia syndrome. ALLERGIES: NONE. SOCIAL HISTORY: No tobacco use. FAMILY HISTORY: Noncontributory. REVIEW OF SYSTEMS: Ten-system review of systems is otherwise negative. PHYSICAL EXAMINATION: GENERAL: He is a well-nourished elderly gentleman, sitting up in bed, in no acute distress. VITAL SIGNS: Stable. He is afebrile. HEENT: Pupils are equal and reactive. Conjunctivae are clear. Oropharynx clear. NECK: Supple. EXTREMITIES: He has a right shoulder immobilized with a nerve block. NEUROLOGIC: He is alert and appropriate. His speech is fluent and clear. Cranial nerves are intact. Sensations intact. No abnormal movements are seen. Gait is not tested at this time. IMAGING STUDIES: Reviewed. SUMMARY: Given the series of events with probable aura of taste prior to the onset of a generalized tonoclonic seizure, this represents a focal seizure disorder. This aura has occurred prior to this as well. I think it will be prudent to go ahead and start him on an anticonvulsant to prevent further injury. I would be happy to follow up with him as an outpatient. Job ID: [id number]
[2019-06-27] MEDS: CEFAZOLIN 2 GM in Premix Bag 1 BAG IVPB SCH (21:31)
[2019-06-27] MEDS: Atorvastatin Calcium 40 MG TAB PO SCH (21:32)
[2019-06-28] MEDS: Sodium Chloride 0.9% 1,000 ML IV SCH (03:24)
[2019-06-28] MEDS: CEFAZOLIN 2 GM in Premix Bag 1 BAG IVPB SCH (03:24)
--- NOTE | 2019-06-28 09:00 | RAD ---
Exam:3 views left shoulder HISTORY: Status post seizure. Unable to lift arm. COMPARISON: None FINDINGS: Glenohumeral joint space is preserved. No fracture or dislocation. There are chronic degene rative changes in the left shoulder. Nonspecific calcification proximal to the rotator cuff tendon insertion site. Better interrogation with MRI may be beneficial. IMPRESSION: No fracture dislocation. Presumed chronic changes. MRI may be beneficial.
--- NOTE | 2019-06-28 09:25 | PRG ---
DATE OF SERVICE: 06/28/2019 SUBJECTIVE: Mr. Hutton is currently doing well. No current complaints. He recently had surgery. No further episodes suggesting seizure. He was diagnosed with seizure by Dr. Scout Davenport. OBJECTIVE: VITAL SIGNS: Blood pressure 124/68, pulse 94, and temperature 98.6. LUNGS: Clear to auscultation. HEART: Regular rate and rhythm. ABDOMEN: Soft, nontender, and nondistended. EXTREMITIES: No edema. PERTINENT LABORATORY DATA: Hemoglobin 13.6. Creatinine 0.71. IMPRESSION: 1. Seizure. 2. History of inappropriate sinus tachycardia. 3. Recent fall with open reduction, reconstruction of right proximal humerus fracture dislocation. RECOMMENDATIONS: CV standpoint, Mr. Hutton is currently doing well. His heart rate is stable in the 90s. Continue nadolol. May consider rehab. The patient feels and appears weak. Otherwise, from my standpoint, no further recommendations. Plan is to follow up in the office in next 2 to 3 weeks. Job ID: [id number]
[2019-06-28] MEDS: levETIRAcetam 500 MG TAB PO SCH ×2 (09:44→20:22)
[2019-06-28] MEDS: Nadolol 40 MG TAB PO SCH ×2 (09:44→20:23)
[2019-06-28] MEDS: Lisinopril 10 MG TAB PO SCH ×2 (09:44→20:22)
[2019-06-28] MEDS: Famotidine/PF 20 mg/2ml Vial SLOW IVP SCH ×2 (09:44→20:22)
--- NOTE | 2019-06-28 13:31 | PDOC.HOSPP ---
- Subjective Encounter Date: 06/28/19 Encounter Time: 09:00 Subjective: Patient seen and examined. No new complaints. No overnight events - Objective Vital Signs & Weight: Vital Signs (12 hours) Temp Pulse Resp BP BP BP Pulse Ox 06/28/19 11:57 98.1 F 102 H 14 95/58 L 94 L 06/28/19 09:44 99/57 L 06/28/19 07:10 98.1 F 99 14 97/59 L 93 L 06/28/19 04:04 98.6 F 94 18 124/68 91 L Weight Weight 215 lb I&O: 06/27/19 06/28/19 06/29/19 06:59 06:59 06:59 Intake Total 1963 1889 242 Output Total 590 600 Balance 1373 1289 242 Result Diagrams: 06/27/19 04:32 06/27/19 04:32 Hospitalist ROS - Review of Systems Eyes: denies: pain, vision change, conjunctivae inflammation, eyelid inflammation, redness, other ENT: denies: ear pain, ear discharge, nose pain, nose discharge, nose congestion , mouth pain, mouth swelling, throat pain, throat swelling, other Respiratory: denies: cough, dry, shortness of breath, hemoptysis, SOB with excertion, pleuritic pain, sputum, wheezing, other Cardiovascular: denies: chest pain, palpitations, orthopnea, paroxysmal noc. dyspnea, edema, light headedness, other Gastrointestinal: denies: nausea, vomiting, abdominal pain, diarrhea, constipation, melena, hematochezia, other Genitourinary: denies: dysuria, frequency, incontinence, hematuria, retention, other Musculoskeletal: denies: neck pain, shoulder pain, arm pain, back pain, hand pain, leg pain, foot pain, other - Medication Medications: Active Medications Generic Name Dose Route Start Last Admin Trade Name Freq PRN Reason Stop Dose Admin Atorvastatin Calcium 40 mg 06/26/19 21:00 06/27/19 21:32 Lipitor PO 40 mg HS LUDIN Administration Famotidine 20 mg 06/26/19 21:00 06/28/19 09:44 Pepcid SLOW IVP 20 mg BID LUDIN Administration Levetiracetam 500 mg 06/28/19 09:00 06/28/19 09:44 Keppra PO 500 mg BID LUDIN Administration Lisinopril 10 mg 06/26/19 21:00 06/28/19 09:44 Zestril PO Not Given BID ULDIN Nadolol 10 mg 06/26/19 10:42 06/28/19 09:44 Corgard PO Not Given BID LUDIN - Exam General Appearance: NAD, awake alert Eye: PERRL, anicteric sclera ENT: normocephalic atraumatic, no oropharyngeal lesions Neck: supple, symmetric, no JVD Heart: RRR, no murmur, no gallops Respiratory: CTAB, no wheezes, no rales, no ronchi Gastrointestinal: soft, non-tender, non-distended, normal bowel sounds Extremities: no cyanosis, no clubbing Extremities - other findings: right UE in sling Skin: normal turgor, no lesions Neurological: no focal deficits Musculoskeletal: normal tone, normal strength Psychiatric: normal affect, normal behavior Hosp A/P (1) Syncope Code(s): R55 - SYNCOPE AND COLLAPSE Status: Acute (2) Seizure Code(s): R56.9 - UNSPECIFIED CONVULSIONS Status: Acute (3) Humeral fracture Code(s): S42.309A - UNSP FRACTURE OF SHAFT OF HUMERUS, UNSP ARM, INIT Status: Acute Plan: s/p ORIF (4) Hypertension Code(s): I10 - ESSENTIAL (PRIMARY) HYPERTENSION Status: Chronic (5) Dyslipidemia Code(s): E78.5 - HYPERLIPIDEMIA, UNSPECIFIED Status: Chronic (6) GERD (gastroesophageal reflux disease) Code(s): K21.9 - GASTRO-ESOPHAGEAL REFLUX DISEASE WITHOUT ESOPHAGITIS Status: Chronic (7) Asthma Code(s): J45.909 - UNSPECIFIED ASTHMA, UNCOMPLICATED Status: Chronic - Plan old records reviewed/req, PT/OT cardiology consulted echo pending neurology consulted medication reviewed and continue to provide symptomatic care ortho to do surgery tomorrow home medication reconciled 06/27/19 continue current plan, today surgery cardiac and neuro work up negative so far 06/28/19 neuro recommended keppra if ortho ok will DC medication reviewed and continue to provide supportive care
[2019-06-28] MEDS: Atorvastatin Calcium 40 MG TAB PO SCH (20:22)
[2019-06-29] MEDS: levETIRAcetam 500 MG TAB PO SCH ×2 (09:28→19:55)
[2019-06-29] MEDS: Nadolol 40 MG TAB PO SCH ×2 (09:29→22:07)
[2019-06-29] MEDS: Lisinopril 10 MG TAB PO SCH ×2 (09:29→22:08)
[2019-06-29] MEDS: Famotidine/PF 20 mg/2ml Vial SLOW IVP SCH ×2 (09:30→20:57)
[2019-06-29] MEDS: Acetaminophen 325 MG TAB PO PRN (19:54)
[2019-06-29] MEDS: Atorvastatin Calcium 40 MG TAB PO SCH (19:55)
[2019-06-29] MEDS: Polyethylene Glycol 3350 17 GM Packet PO SCH (20:56)
[2019-06-29] MEDS: Senokot S 8.6-50 MG TAB PO SCH (20:57)
--- NOTE | 2019-06-30 00:53 | EKG ---
Test Reason : FALL Blood Pressure : / mmHG Vent. Rate : 087 BPM Atrial Rate : 087 BPM P-R Int : 160 ms QRS Dur : 080 ms QT Int : 362 ms P-R-T Axes : 044 012 040 degrees QTc Int : 435 ms Normal sinus rhythm Cannot rule out Anterior infarct , age undetermined Abnormal ECG Confirmed by MANNY GUERRERO ([id number]), publications editor DOMITILA PEREZ ([id number]) on 06/30/2019 12:52:48 AM Referred By: Confirmed By:MANNY GUERRERO
[2019-06-30] MEDS: Acetaminophen 325 MG TAB PO PRN (05:05)
[2019-06-30 05:20] LABS: #Eosinphils 0.2 thou/uL (0.0-0.7); #Lymphocytes 1.8 thou/uL (1.20-3.40); #Monocytes 1.1 thou/uL (0.11-0.59); #Neutrophils 4.5 thou/uL (1.40-6.50); %Basophils 0.3 % (0.0-1.0); %Lymphocytes 23.7 % (21.0-51.0); %Monocytes 13.8 % (0.0-10.0); %Neutrophils 59.2 % (42.0-75.0); Hemoglobin 10.7 g/dL (14.0-18.0); Mean Corpuscular HGB CONC 35.4 g/dL (32.0-36.0); Mean Corpuscular Hemoglobin 33.7 pg (27.0-31.0); Mean Corpuscular Volume 95.1 fL (78.0-98.0); Platelet Count 175 thou/uL (130-400); Red Blood Cell (RBC) Count 3.18 mill/uL (4.70-6.10); White Blood Cell (WBC) Count 7.6 thou/uL (4.8-10.8)
[2019-06-30 05:58] LABS: ALT (SGPT) 16 U/L (8-55); AST (SGOT) 34 U/L (5-34); Albumin 2.7 g/dL (3.4-4.8); Alkaline Phosphatase 45 U/L (40-110); Anion Gap 11 mmol/L (10-20); BUN (Urea Nitrogen) 14 mg/dL (8.4-25.7); Bilirubin, Total 2.3 mg/dL (0.2-1.2); Calc. Creatinine Clearance 111 mL/min (70-130); Calcium 7.7 mg/dL (7.8-10.44); Carbon Dioxide 26 mmol/L (23-31); Chloride 100 mmol/L (98-107); Estimated GFR-MDRD Greater than 90; Globulin 2.6 g/dL (2.4-3.5); Glucose 116 mg/dL (83-110); Potassium 3.4 mmol/L (3.5-5.1); Protein, Total 5.3 g/dL (5.8-8.1); Sodium 134 mmol/L (136-145)
--- NOTE | 2019-06-30 07:37 | PDOC.HOSPP ---
- Subjective Encounter Date: 06/29/19 Encounter Time: 19:45 Subjective: Patient seen and examined for Seizure/Syncope. B/L Shoulder pain +. No N/V/CP. No new complaints. No overnight events - Objective Vital Signs & Weight: Vital Signs (12 hours) Temp Pulse Resp BP BP Pulse Ox 06/30/19 05:09 80 16 116/67 94 L 06/30/19 03:52 96 06/30/19 00:08 97.7 F 80 16 131/71 96 06/29/19 22:08 108/65 06/29/19 22:07 89 108/65 06/29/19 20:00 93 L Weight Weight 215 lb I&O: 06/29/19 06/30/19 07/01/19 06:59 06:59 06:59 Intake Total 242 720 Output Total 500 Balance 242 220 Result Diagrams: 06/30/19 05:01 06/30/19 05:01 Radiology Reviewed by me: Yes (CXR - no infiltrate) Hospitalist ROS - Review of Systems Respiratory: denies: cough, dry, shortness of breath, hemoptysis, SOB with excertion, pleuritic pain, sputum, wheezing, other Cardiovascular: denies: chest pain, palpitations, orthopnea, paroxysmal noc. dyspnea, edema, light headedness, other Gastrointestinal: reports: constipation. denies: nausea, vomiting, abdominal pain, diarrhea, melena, hematochezia, other - Medication Medications: Active Medications Generic Name Dose Route Start Last Admin Trade Name Freq PRN Reason Stop Dose Admin Acetaminophen 650 mg 06/27/19 15:04 06/30/19 05:05 Tylenol PO 650 mg Q6H PRN Administration FEVER/PAIN (1-3) Atorvastatin Calcium 40 mg 06/26/19 21:00 06/29/19 19:55 Lipitor PO 40 mg HS LUDIN Administration Levetiracetam 500 mg 06/28/19 09:00 06/29/19 19:55 Keppra PO 500 mg BID LUDIN Administration Lisinopril 10 mg 06/26/19 21:00 06/29/19 22:08 Zestril PO 10 mg BID LUDIN Administration Nadolol 10 mg 06/26/19 10:42 06/29/19 22:07 Corgard PO 10 mg BID LUDIN Administration Polyethylene Glycol 17 gm 06/29/19 21:00 06/29/19 20:56 Miralax PO 17 gm BID LUDIN Administration Senna/Docusate Sodium 2 tab 06/29/19 21:00 06/29/19 20:57 Senokot S PO 2 tab BID LUDIN Administration - Exam General Appearance: NAD Heart: RRR, no gallops Respiratory: no rales Gastrointestinal: non-tender, non-distended, normal bowel sounds Extremities: no clubbing Hosp A/P (1) Seizure Code(s): R56.9 - UNSPECIFIED CONVULSIONS Status: Acute (2) Humeral fracture Code(s): S42.309A - UNSP FRACTURE OF SHAFT OF HUMERUS, UNSP ARM, INIT Status: Acute (3) GERD (gastroesophageal reflux disease) Code(s): K21.9 - GASTRO-ESOPHAGEAL REFLUX DISEASE WITHOUT ESOPHAGITIS Status: Chronic (4) Hypertension Code(s): I10 - ESSENTIAL (PRIMARY) HYPERTENSION Status: Chronic - Plan DVT proph w/SCDs Cont Keppra Cont Nadolol Cont PT/OT AM labs DC planning Treat constipation
[2019-06-30] MEDS ORDERED: Potassium Chloride 10 MEQ TAB PO SCH (08:00)
[2019-06-30] MEDS: levETIRAcetam 500 MG TAB PO SCH (08:17)
[2019-06-30] MEDS: Lisinopril 10 MG TAB PO SCH (08:17)
[2019-06-30] MEDS: Senokot S 8.6-50 MG TAB PO SCH (08:17)
[2019-06-30] MEDS: Polyethylene Glycol 3350 17 GM Packet PO SCH (08:18)
[2019-06-30] MEDS: Nadolol 40 MG TAB PO SCH (08:18)
--- NOTE | 2019-06-30 10:18 | DIS ---
DATE OF ADMISSION: 06/26/2019 DATE OF DISCHARGE: 06/28/2019 DISCHARGE DISPOSITION: Home. PRIMARY DISCHARGE DIAGNOSES: 1. New onset seizure. 2. Humeral fracture, status post open reduction and internal fixation. SECONDARY DISCHARGE DIAGNOSES: Hypertension, gastroesophageal reflux disease, dyslipidemia, asthma. PRIMARY PROCEDURE/OPERATION: Right proximal humeral fracture dislocation secondary to seizure and status post open reduction and internal fixation and reconsideration of right proximal humerus fracture dislocation. DISCHARGE MEDICATIONS: 1. Ventolin HFA one puff q.6 hourly p.r.n. 2. Aspirin 81 mg daily. 3. Lipitor 40 mg p.o. at bedtime. 4. Enalapril 10 mg b.i.d. 5. Advair 1 inhalation daily. 6. Nadolol 10 mg twice daily. 7. Keppra 500 mg p.o. b.i.d. DISCHARGE INSTRUCTIONS: The patient is advised to avoid driving until cleared by Neurology. RADIOLOGICAL INVESTIGATION: CT brain, knee x-ray, cervical spine CT, chest x-ray, upper extremity CT scan, brain MRI, right shoulder x-ray, left shoulder x-ray. SIGNIFICANT LABORATORY DATA: Creatinine 0.71. Hemoglobin 13.6. CONTRAINDICATION: None. CODE STATUS: Full code. INPATIENT PHYS ASSISTANT: Dr. Quiñonez, Cardiology was consulted for syncopal episode. Dr. Scout Davenport consulted for suspected seizure. Dr. Fox was consulted for humeral fracture. TEST RESULT PENDING ON DISCHARGE: None. ALLERGIES: NO KNOWN DRUG ALLERGIES. DISCHARGE PLAN: Posthospital, the patient will follow up with primary care physician, Neurology, and orthopedic physician. If Orthopedics okay, then we will consider discharging him home later on today. Job ID: [id number]
[2019-06-30 12:05] VITALS: BP 114/76; TEMP 97.5
--- NOTE | 2019-06-30 15:16 | PRG ---
DATE OF SERVICE: 06/30/2019 SUBJECTIVE: Simon is a 74-year-old male, postop day 3, from an open reduction of a right shoulder fracture dislocation. He is doing relatively well. He does complain of left shoulder pain. He is planning to go home today. I believe Medicine is planning on discharging him, and he is stable from their perspective. OBJECTIVE: Shoulder is in a sling on the right, the left shoulder is not. He has adequate motion at the elbow, but the shoulder is uncomfortable to examine. IMPRESSION: Status post right shoulder open reduction secondary to fracture dislocation. Left shoulder, suspect calcific tendinitis, possible rotator cuff tear. This will be evaluated as an outpatient. Give consideration to MRI. Job ID: [id number]
--- NOTE | 2019-06-30 15:23 | DIS ---
DATE OF ADMISSION: 06/26/2019 DATE OF DISCHARGE: 06/30/2019 DISCHARGE DISPOSITION: Home with [facility]. FOLLOWUP: 1. Follow up with primary care physician, Dr. Tania Hines, in 1 week. 2. Follow up with Neurology, Dr. Davenport, in 2 weeks. 3. Follow up with Orthopedic, Dr. Fox, as scheduled. ALLERGIES: NO KNOWN DRUG ALLERGIES. DISCHARGE MEDICATIONS: Keppra 500 mg b.i.d. All other home medications were left unchanged. The patient was seen and examined on the day of discharge. Denies any new complaints. No chest pain, shortness of breath, palpitations reported. Repeat basic metabolic profile after 1 week. Primary care physician advised to follow. No driving until cleared by MD. INPATIENT PROCEDURES: On 06/27/2019, the patient underwent open reduction and reconstruction of the right proximal humerus fracture dislocation by Dr. Fox. INPATIENT CONSULTANTS: 1. Cardiology, Dr. Escobar. 2. Orthopedic, Dr. Fox. 3. Neurology, Dr. Davenport. BRIEF HOSPITAL COURSE: The patient is a 74-year-old male with persistent sinus tachycardia, hypertension, hyperlipidemia, presented to the emergency room after an episode of fall with seizure. He had urinary incontinence along with tongue biting during the above episode. Please refer to the history and physical for further details. The patient was admitted to the telemetry unit with a diagnosis of suspected seizure causing fall. He also had right humeral fracture secondary to fall. He was seen by multiple consultants including Cardiology, Orthopedic, and Neurology. He has been started on Keppra by Neurology. Dr. Escobar recommended to continue the same medications. He underwent open reduction and reconstruction of the right proximal humerus. He has been cleared by consultants for discharge. DIAGNOSTIC TESTS: 1. MRI of the brain was negative for acute CVA. 2. Echocardiogram showed ejection fraction of 55% to 60% with diastolic dysfunction, mild mitral regurgitation, mild tricuspid regurgitation. FINAL DIAGNOSES: 1. Seizure. 2. History of inappropriate sinus tachycardia. 3. Right humeral fracture secondary to fall, status post open reduction and internal fixation. 4. Hyponatremia. 5. Lactic acidosis. 6. Hypertension. 7. Hyperlipidemia. 8. Gastroesophageal reflux disease. 9. Diverticulosis. 10. Abnormal liver function tests of unclear etiology. Please note that the patient has abnormal LFTs on and off. Repeat LFTs after 1 to 2 weeks is recommended. 11. The patient understands the above plan of care. Fall precaution was emphasized. Job ID: [id number]
== END 2019-06-30 15:55 | disposition home or self-care (01) | DRG 493 ==
LOC: ERS 01:59 → OBSVTOIN 04:26 → ERHOLD 04:26 → 2SE 13:18 → SURG A 06-27 20:27
PROVIDERS: ADMIT Internal Medicine; ATTEND Internal Medicine
PROC: 0PSF04Z Reposition Right Humeral Shaft with Internal Fixation Device, Open Approach (ICD-10-PCS; principal; 2019-06-27)
DX: S42.301A Unspecified fracture of shaft of humerus, right arm, initial encounter for closed fracture (principal); E87.1 Hypo-osmolality and hyponatremia; E87.2 Acidosis; G40.909 Epilepsy, unspecified, not intractable, without status epilepticus; R00.0 Tachycardia, unspecified; I10 Essential (primary) hypertension; E78.5 Hyperlipidemia, unspecified; K21.9 Gastro-esophageal reflux disease without esophagitis; K57.90 Diverticulosis of intestine, part unspecified, without perforation or abscess without bleeding; R94.5 Abnormal results of liver function studies; R32 Unspecified urinary incontinence; J45.909 Unspecified asthma, uncomplicated; W18.39XA Other fall on same level, initial encounter
CPT/HCPCS: 36415; 70450; 70553; 71045; 72125; 76000; 80053; 82550; 82607; 82746; 83605; 83735; 84443; 84484; 85025; 93005; 93306; 93880; 94760; 96374; 96375; A4306; A9579; J0690; J2001; J2270; J2405; J2704; J2795; J3010; L0120; S0028

== ENCOUNTER 2020-04-20 08:59 | Outpatient (CLI) | payer MEDICARE ==
--- NOTE | 2020-04-20 10:02 | BD ---
DEXA SCAN: Date: 04/20/2020 INDICATION: History of osteopenia. COMPARISON: None. FINDINGS: Lumbar Spine: BMD (g/cm2) L1 1.349 T-Score: 2.5 Z-Score: 2.5 L2 1.371 T-Score: 2.5 Z-Score: 3.6 L3 1.185 T-Score: 0.7 Z-Score: 1.8 L4 1.184 T-Score: 0.9 Z-Score: 2.0 L1-L4 1.272 T-Score: 1.6 Z-Score: 2.7 Left Femoral Neck: 0.827 T-Score: -0.8 Z-Score: 0.6 Left Total Hip: 1.035 T-Score: 0.0 Z-Score: 0.9 IMPRESSION: Based on WHO criteria, the patient's bone mineral density is within normal limits. The patient is at low risk for fracture. POS: [facility]
== END 2020-04-20 09:00 | disposition home or self-care (01) ==
LOC: BICMAMMO 08:59
PROVIDERS: ATTEND Family Medicine
DX: M85.80 Other specified disorders of bone density and structure, unspecified site (principal)
CPT/HCPCS: 77080

== ENCOUNTER 2020-09-25 12:26 | Outpatient (CLI) | payer MEDICARE | END 2020-09-25 12:27 | disposition home or self-care (01) | LOC: EEG 12:26 | PROVIDERS: ATTEND Nurse Practitioner Acute Care | DX: G40.909 Epilepsy, unspecified, not intractable, without status epilepticus (principal) | CPT/HCPCS: 95816 ==

== ENCOUNTER 2022-04-13 14:03 | Outpatient (CLI) | payer MEDICARE | END 2022-04-13 14:04 | disposition home or self-care (01) | LOC: BICMAMMO 14:03 | PROVIDERS: ATTEND Family Medicine | DX: M85.80 Other specified disorders of bone density and structure, unspecified site (principal) | CPT/HCPCS: 77080 ==

== ENCOUNTER 2023-02-23 12:47 | Outpatient (CLI) | payer MEDICARE | END 2023-02-23 12:48 | disposition home or self-care (01) | LOC: EEG 12:47 | PROVIDERS: ATTEND Psychiatry & Neurology Neurology | DX: R56.9 Unspecified convulsions (principal) | CPT/HCPCS: 95816 ==

== ENCOUNTER 2023-03-14 14:00 | Outpatient (CLI) | payer MEDICARE | END 2023-03-14 14:01 | disposition home or self-care (01) | LOC: BICCT 14:00 | PROVIDERS: ATTEND Psychiatry & Neurology Neurology | DX: S06.5XAA Traumatic subdural hemorrhage with loss of consciousness status unknown, initial encounter (principal) | CPT/HCPCS: 70450 ==

== ENCOUNTER 2023-04-21 08:25 | Outpatient (CLI) | payer MEDICARE | END 2023-04-21 08:26 | disposition home or self-care (01) | LOC: BICULT 08:25 | PROVIDERS: ATTEND Family Medicine | DX: R17 Unspecified jaundice (principal); N28.89 Other specified disorders of kidney and ureter; Z90.49 Acquired absence of other specified parts of digestive tract | CPT/HCPCS: 76705 ==

== ENCOUNTER 2023-05-23 14:09 | Outpatient (CLI) | payer MEDICARE | END 2023-05-23 14:10 | disposition home or self-care (01) | LOC: BICCT 14:09 | PROVIDERS: ATTEND Neurological Surgery | DX: I62.00 Nontraumatic subdural hemorrhage, unspecified (principal) | CPT/HCPCS: 70450 ==

== ENCOUNTER 2023-06-12 12:57 | Outpatient (CLI) | payer MEDICARE | END 2023-06-12 12:58 | disposition home or self-care (01) | LOC: BICCT 12:57 | PROVIDERS: ATTEND Neurological Surgery | DX: I62.01 Nontraumatic acute subdural hemorrhage (principal); I62.03 Nontraumatic chronic subdural hemorrhage | CPT/HCPCS: 70450 ==

== ENCOUNTER 2024-05-04 22:11 | Emergency (ER) | payer MEDICARE ==
[2024-05-04 23:05] LABS: ALT (SGPT) 22 U/L (8-55); AST (SGOT) 24 U/L (5-34); Albumin 3.7 g/dL (3.4-4.8); Alkaline Phosphatase 50 U/L (40-110); Anion Gap 9 mmol/L (10-20); BUN (Urea Nitrogen) 14 mg/dL (8.4-25.7); Bilirubin, Total 1.4 mg/dL (0.2-1.2); Calc. Creatinine Clearance 0 mL/min (70-130); Calcium 8.6 mg/dL (7.8-10.44); Carbon Dioxide 28 mmol/L (23-31); Chloride 107 mmol/L (98-107); Estimated GFR 88; Globulin 3.2 g/dL (2.4-3.5); Glucose 126 mg/dL (83-110); Lipase 40 U/L (8-78); Magnesium 2.1 mg/dL (1.6-2.6); Potassium 4.1 mmol/L (3.5-5.1); Protein, Total 6.9 g/dL (5.8-8.1); Sodium 140 mmol/L (136-145)
[2024-05-04 23:10] LABS: Troponin I Less than 0.010 ng/mL (< 0.028)
[2024-05-04 23:14] LABS: #Basophils 0.04 10x3/uL (0.0-0.2); %Basophils 0.7 % (0.0-1.0); %Eosinophils 3.5 % (0.0-10.0); %Lymphocytes 45.1 % (21.0-51.0); %Monocytes 10.7 % (0.0-10.0); %Neutrophils 39.8 % (42.0-75.0); Hemoglobin 14.9 g/dL (14.0-18.0); Mean Corpuscular HGB CONC 34.7 g/dL (32.0-36.0); Mean Corpuscular Hemoglobin 31.8 pg (27.0-31.0); Mean Corpuscular Volume 91.9 fL (78.0-98.0); Mean Platelet Volume 9.7 fL (7.4-10.4); Platelet Count 178 10x3/uL (130-400); RBC Distribution Width 13.4 % (11.5-14.5); Red Blood Cell (RBC) Count 4.68 mill/uL (4.70-6.10)
== END 2024-05-05 01:50 | disposition home or self-care (01) ==
LOC: ERS 22:11
DX: I49.3 Ventricular premature depolarization (principal); R00.2 Palpitations; I10 Essential (primary) hypertension; Z79.82 Long term (current) use of aspirin; Z79.899 Other long term (current) drug therapy
CPT/HCPCS: 36415; 71045; 80053; 83690; 83735; 83880; 84484; 85025; 93005